=== PATIENT | male | born 1955 | race Caucasian/White ===

== ENCOUNTER → 2018-08-29 | Outpatient (CLI) | payer OTHER ==
--- NOTE | 2018-08-29 08:59 | US ---
EXAMINATION TYPE: US carotid duplex BILAT DATE OF EXAM: 08/29/2018 COMPARISON: Carotid ultrasound March 06, 2016 CLINICAL HISTORY: R42 DIZZINESS AND GIDDINESS. EXAM MEASUREMENTS: RIGHT: Peak Systolic Velocity (PSV) cm/sec ----- Right CCA: 64.6 ----- Right ICA: 63.5 ----- Right ECA: 96.3 ICA/CCA ratio: 1.0 RIGHT: End Diastole cm/sec ----- Right CCA: 18.9 ----- Right ICA: 28.2 ----- Right ECA: 17.1 LEFT: Peak Systolic Velocity (PSV) cm/sec ----- Left CCA: 61.6 ----- Left ICA: 82.3 ----- Left ECA: 81.4 ICA/CCA ratio: LEFT: End Diastole cm/sec ----- Left CCA: 21.5 ----- Left ICA: 37.8 ----- Left ECA: 16.8 VERTEBRALS (direction of flow): Right Vertebral: Antegrade Left Vertebral: Antegrade Rhythm: Normal Grayscale images show mild eccentric peripheral plaque. Velocity measurements and ratios remain withi n normal limits in visualized portion of both internal carotid arteries. IMPRESSION: Mild peripheral plaque without hemodynamic significant stenosis seen in either internal carotid artery. Criteria for Assigning % of Stenosis / Diameter reduction (Estimation based on the indirect measurements of the internal carotid artery velocities (ICA PSV). 1. Normal (no stenosis)=ICA PSV < 125 cm/s: ratio < 2.0: ICA EDV<40 cm/s. 2. Less than 50% stenosis=ICA PSV < 125 cm/s: ratio < 2.0: ICA EDV<40 cm/s. 3. 50 to 69% stenosis=ICA PSV of 125 to 230 cm/s: ration 2.0 ? 4.0: ICA EDV 40-100 cm/s. 4. Greater than 70% stenosis to near occlusion= ICA PSV > 230 cm/s: ratio > 4.0: ICA EDV > 100 cm/s. 5. Near occlusion= ICA PSV velocities may be low or undetectable: variable ratio and ICA EDV. 6. Total occlusion=unable to detect flow.
== END | disposition home or self-care (01) ==
LOC: RADUSWWP 08:18
PROVIDERS: ATTEND Family Medicine
DX: I65.23 Occlusion and stenosis of bilateral carotid arteries (principal)
CPT/HCPCS: 93880